=== PATIENT | female | born 1985 | race American Indian/Alaskan Native ===

== ENCOUNTER 2017-08-08 12:39 | Emergency (ER) | payer MEDICAID ==
[2017-08-08 12:40] VITALS: BMI 27.8
--- NOTE | 2017-08-08 13:13 | ED PDOC ---
Arrival/HPI - General Time Seen by Provider: 08/08/17 13:12 Historian: Patient - History of Present Illness Narrative History of Present Illness (Text): 08/08/17 13:13 32 y/o female, pmh including uterine fibroid/ovarian cyst, nkda, c/o wants the sonogram for the breast and the ovarian cysts pain x 1 week. Pt. stated that she is here mainly for the ultrasound of the ovaries as she had been told that she has ovarian cysts on the both side, been having pain on and off from the last month during the period, wants to know if the ovarian cyst has been growing bigger. Pt. has no breast pain but feel the lump on the left side of the breast, no nipple inversion or nipple discharge, no family history of the breast cancer, and she is following up with the pmd Dr. Cuellar which he gave her a prescription for the breast sonogram. Pt .has no nausea or vomiting, no fever or chills, no night sweat, no dizziness, no change in vision, no dizziness , no chest pain or shortness of breath, no other medical or psychological complaints. Past Medical History - Provider Review Nursing Documentation Reviewed: Yes - Infectious Disease Hx of Infectious Diseases: None - Tetanus Immunization Tetanus Immunization: Unknown - Past Medical History Past Medical History: No Previous - Genitourinary/Gynecological Hx Genitourinary Disorders: Yes Other/Comment: Ovarian Cysts - Psychiatric Hx Psychophysiologic Disorder: No Hx Anxiety: No Hx Bipolar Disorder: No Hx Depression: No Hx Emotional Abuse: No Hx Hallucinations: No Hx Panic Disorder: No Hx Post Traumatic Stress Disorder: No Hx Psychosis: No Hx Physical Abuse: No Hx Schizophrenia: No Hx Sexual Abuse: No Hx Substance Use: No - Past Surgical History Past Surgical History: No Previous - Surgical History Hx Eye Surgery: Yes - Anesthesia Hx Anesthesia: Yes Hx Anesthesia Reactions: No Hx Malignant Hyperthermia: No - Suicidal Assessment Feels Threatened In Home Enviroment: No Family/Social History - Physician Review Nursing Documentation Reviewed: Yes Family/Social History: Unknown Family HX Smoking Status: Never Smoked Hx Alcohol Use: No Hx Substance Use: No Hx Substance Use Treatment: Yes Allergies/Home Meds Allergies/Adverse Reactions: Allergies No Known Allergies Allergy (Verified 08/08/17 13:29) Review of Systems - Review of Systems Constitutional: absent: Fatigue, Fevers Eyes: absent: Vision Changes ENT: absent: Hearing Changes Respiratory: absent: SOB, Cough Cardiovascular: absent: Chest Pain Gastrointestinal: absent: Abdominal Pain, Nausea, Vomiting Genitourinary Female: absent: Dysuria, Frequency, Hematuria Skin: absent: Rash, Pruritis, Skin Lesions Neurological: absent: Headache, Dizziness Psychiatric: absent: Anxiety, Depression Physical Exam Vital Signs Reviewed: Yes Vital Signs Temp Pulse Resp BP Pulse Ox 08/08/17 16:20 75 18 116/58 L 99 08/08/17 13:22 99.5 F 89 16 118/51 L 100 Temperature: Afebrile Pulse: Regular Respiratory Rate: Normal Appearance: Positive for: Well-Appearing, Non-Toxic, Comfortable Pain Distress: Mild Mental Status: Positive for: Alert and Oriented X 3 - Systems Exam Head: Present: Atraumatic, Normocephalic Pupils: Present: PERRL Extroacular Muscles: Present: EOMI Conjunctiva: Present: Normal Mouth: Present: Moist Mucous Membranes Neck: Present: Normal Range of Motion Respiratory/Chest: Present: Clear to Auscultation, Good Air Exchange, Other ( breast exam not performed as the patient deferred and refused. ). No: Respiratory Distress, Accessory Muscle Use Cardiovascular: Present: Regular Rate and Rhythm, Normal S1, S2. No: Murmurs Abdomen: Present: Normal Bowel Sounds. No: Tenderness, Distention, Peritoneal Signs, Rebound, Guarding Genitourinary/Pelvic Exam: Present: Other (pelvic examination not performed as the patient refused and deferred. ) Back: Present: Normal Inspection Upper Extremity: Present: Normal Inspection. No: Cyanosis, Edema Lower Extremity: Present: Normal Inspection. No: Edema Neurological: Present: GCS=15, CN II-XII Intact, Speech Normal Skin: Present: Warm, Dry, Normal Color. No: Rashes Psychiatric: Present: Alert, Oriented x 3, Normal Insight, Normal Concentration Medical Decision Making ED Course and Treatment: 08/08/17 13:33 -I explained to the patient that the breast sonogram can be outpatient performed and follow up with the radiology imaging center and follow up with Dr. Cuellar for continuous follow up. -labs/ua -transvaginal sonogram -IVF/toradol 08/08/17 15:56 -Labs are non-significant -UA show +UTI -IV Rocephine ordered. 08/08/17 17:01 -Sonogram show: Multiple pedunculated fibroids. The largest is in the right adnexa its measurements are smaller compared to prior studies. Remarkable appearing endometrium. No endometrial cavity expansion is suggested on this exam. Unremarkable appearing ovaries -Pain resolved improved with the IV toradol. -I spent 10-15 minutes speaking and explaining to the patient and the mother about the labs/radiology results, explained to the patient that she will need to go performed outpatient sonogram with the referral paper and prescription by Dr. Cuellar. -Pt. refused breast and pelvic examination. -Case discussed with Dr. Cameron, he agreed on the diagnosis/treatment/discharge plan. -Discharge home with naproxen, macrobid, stay hydrated, follow up with your own pmd and obgyn within 2 days, return to the ER for any new or worsening signs or symptoms. - Lab Interpretations Lab Results: 08/08/17 15:00 08/08/17 15:00 Lab Results 08/08/17 15:00: Beta HCG, Quant < 2.39 08/08/17 15:00: Sodium 142, Potassium 3.8, Chloride 103, Carbon Dioxide 29, Anion Gap 14, BUN 13, Creatinine 0.7, Est GFR ( Amer) > 60, Est GFR (Non- Af Amer) > 60, Random Glucose 93, Calcium 9.4, Total Bilirubin 0.5, AST 21, ALT 22, Alkaline Phosphatase 49, Total Protein 7.8, Albumin 4.4, Globulin 3.4, Albumin/Globulin Ratio 1.3, Lipase 92 08/08/17 15:00: Urine Color Yellow, Urine Appearance Cloudy, Urine pH 6.0, Ur Specific [place] 1.025, Urine Protein 30 H, Urine Glucose (UA) Negative, Urine Ketones Trace H, Urine Blood Large H, Urine Nitrate Positive H, Urine Bilirubin Negative, Urine Urobilinogen 0.2, Ur Leukocyte Esterase Small H, Urine RBC 10 - 15, Urine WBC 5 - 10, Ur Epithelial Cells 10 - 12, Urine Bacteria Large 08/08/17 15:00: WBC 6.0, RBC 3.93, Hgb 12.4, Hct 36.6, MCV 93.1, MCH 31.6, MCHC 33.9, RDW 12.4, Plt Count 305, MPV 9.8, Gran % 65.2, Lymph % (Auto) 28.6, [place] % (Auto) 5.0, Eos % (Auto) 0.7 L, Baso % (Auto) 0.5, Gran # 3.93, Lymph # 1.7, [place] # 0.3, Eos # 0.0, Baso # 0.03 I have reviewed the lab results: Yes Interpretation: Abnormal lab values (+UTI) - RAD Interpretation Radiology Orders: 08/08/17 14:16 TRANSVAGINAL [US] Stat HISTORY: bilateral ovarian cysts? c/o pain COMPARISON: CT abdomen and pelvis 05/11/2016. Pelvic ultrasound 08/29/2013 TECHNIQUE: Transabdominal and transvaginal FINDINGS: UTERUS: Measures 6.4 x 2.9 x 2.8 cm. Anteverted. In the right adnexa a pedunculated fibroid with central hypo echogenicity measuring 5.3 x 5.0 x 5.1 cm in size is noted. This probably is what simulated a expanded endometrial canal on the CT abdomen and pelvis from 05/11/2016 as the endometrium is separate from it and normal appearing. Within this right adnexal mass presumably a large pedunculated fibroid is a central homogeneous hypo echogenicity. A normal- appearing right ovary is seen separate from this a right adnexal mass. Additional fibroids are noted many of which appear pedunculated is well at least 3 are noted the 1 in the largest is as mentioned above. This large pedunculated right adnexal fibroid appears smaller in size on the current study previously this measured 6.0 x 5.4 x 5.6 cm. Additional pedunculated fibroids are noted 1.8 x 1.4 x 1.9 cm. This is not seen as such on the prior study. A pedunculated fibroid measures 2.4 x 2.2 x 2.1 cm. This appears smaller in size compared to the prior measurement of 3.9 x 2.3 x 2.2 cm. ENDOMETRIUM: Measures 4.3 mm in diameter. Unremarkable. CERVIX: No cervical abnormality identified. RIGHT OVARY: Measures 2.7 x 1.3 x 2.2 cm. No solid mass. Normal flow. LEFT OVARY: Measures 2.4 x 1.0 x 1 point sick cm. No solid mass. Normal flow. FREE FLUID: No significant free fluid noted. OTHER FINDINGS: None. IMPRESSION: Multiple pedunculated fibroids. The largest is in the right adnexa its measurements are smaller compared to prior studies. Remarkable appearing endometrium. No endometrial cavity expansion is suggested on this exam. Unremarkable appearing ovaries [employer]: Radiologist - Medication Orders Current Medication Orders: Discontinued Medications Sodium Chloride (Sodium Chloride 0.9%) 1,000 mls @ 999 mls/hr IV .Q1H1M STA Stop: 08/08/17 15:15 Last Admin: 08/08/17 15:11 Dose: 999 mls/hr eMAR Start Stop Document 08/08/17 15:11 AB (Rec: 08/08/17 15:11 AB [id number]) Intravenous Solution Start Date 08/08/17 Start Time 15:11 End Date 08/08/17 End time 16:11 Total Infusion Time 60 Ceftriaxone Sodium (Rocephin 1 Gram Ivpb) 1 gm in 100 mls @ 200 mls/hr IVPB STAT STA PRN Reason: Protocol Stop: 08/08/17 16:09 Last Admin: 08/08/17 16:32 Dose: 200 mls/hr eMAR Start Stop Document 08/08/17 16:32 AB (Rec: 08/08/17 16:32 AB [id number]) Intravenous Solution Start Date 08/08/17 Start Time 16:32 End Date 08/08/17 End time 17:02 Total Infusion Time 30 Ketorolac Tromethamine (Toradol) 30 mg IVP STAT STA Stop: 08/08/17 14:16 Last Admin: 08/08/17 15:11 Dose: 30 mg MAR Pain Assessment Document 08/08/17 15:11 AB (Rec: 08/08/17 15:12 AB [id number]) Pain Reassessment Is this a pain reassessment? Yes Sleep Is patient sleeping during reassessment? No Presence of Pain Presence of Pain Yes Pain Scale Used Pain Scale Used Numeric Location Upper or Lower Lower Pain Location Body Site Abdomen Back Description Description Constant Pain Behavior Irritability Aggravating Factors ADL's Alleviating Factors/Management Medication Techniques Alleviating Factors Medication IVP Administration Document 08/08/17 15:11 AB (Rec: 08/08/17 15:12 AB [id number]) Charges for Administration # of IVP Administrations 1 - PA / [employer] WORKER / Resident Statement MD/DO has reviewed & agrees with the documentation as recorded. Disposition/Present on Arrival - Present on Arrival Any Indicators Present on Arrival: No History of DVT/PE: No History of Uncontrolled Diabetes: No Urinary Catheter: No History of Decub. Ulcer: No History Surgical Site Infection Following: None - Disposition Have Diagnosis and Disposition been Completed?: Yes Diagnosis: UTI (urinary tract infection), Fibroid Disposition: HOME/ ROUTINE Disposition Time: 17:08 Patient Plan: Discharge Patient Problems: Current Active Problems Problem Status Onset Fibroid Acute UTI (urinary tract infection) Acute Condition: IMPROVED Additional Instructions: -Discharge home with naproxen, macrobid, stay hydrated, follow up with your own pmd and obgyn within 2 days, return to the ER for any new or worsening signs or symptoms. Prescriptions: Naproxen 500 mg PO BID PRN #22 tab PRN Reason: Other Nitrofurantoin Macrocrystals [Macrobid] 100 mg PO BID #14 cap Referrals: Kailyn Cuellar MD [Primary Care Provider] - Follow up with primary Lena Beaulieu MD [Staff Provider] - Follow up with primary Chandu Wetzel MD [Staff Provider] - Follow up with primary Forms: WORK NOTE
[2017-08-08 13:29] VITALS: TEMP 99.5
[2017-08-08] MEDS ORDERED: Sodium Chloride 0.9% 1,000 ML IV STA (14:15)
[2017-08-08 15:17] LABS: BASO # 0.03 K/mm3 (0.0-2.0); BASO % 0.5 % (0.0-3.0); EOS % 0.7 % (1.5-5.0); GRAN # 3.93 (1.4-6.5); GRAN % 65.2 % (50.0-68.0); HEMATOCRIT 36.6 % (36.0-48.0); LYMPH # 1.7 (1.2-3.4); LYMPH % 28.6 % (22.0-35.0); MEAN CELL VOLUME 93.1 fl (80.0-105.0); MEAN CORPUSCULAR HEMOGLOBIN 31.6 pg (25.0-35.0); MEAN CORPUSCULAR HGB CONC 33.9 g/dl (31.0-37.0); MEAN PLATELET VOLUME 9.8 fl (7.0-11.0); MONO # 0.3 (0.1-0.6); RED CELL DISTRIBUTION WIDTH 12.4 % (11.5-14.5)
[2017-08-08 15:21] LABS: URINE BILIRUBIN NEGATIVE (NEGATIVE); URINE BLOOD LARGE (NEGATIVE); URINE GLUCOSE (UA) NEGATIVE (NEGATIVE); URINE KETONE TRACE mg/dL (NEGATIVE); URINE LEUKOCYTE ESTERASE SMALL Leu/uL (NEGATIVE); URINE PROTEIN 30 mg/dL (<30 mg/dL); URINE UROBILINOGEN 0.2 E.U./dL (<1 E.U./dL)
[2017-08-08 15:26] LABS: URINE APPEARANCE CLOUDY (CLEAR); URINE COLOR YELLOW (YELLOW)
[2017-08-08 15:27] LABS: ALB/GLOB RATIO 1.3 (1.1-1.8); ALKALINE PHOSPHATASE 49 U/L (38-126); ALT/SGPT 22 U/L (7-56); AST/SGOT 21 U/L (14-36); BILIRUBIN,TOTAL 0.5 mg/dL (0.2-1.3); BLOOD UREA NITROGEN 13 mg/dL (7-21); CALCIUM 9.4 mg/dL (8.4-10.5); CARBON DIOXIDE 29 mmol/L (21-33); CHLORIDE 103 mmol/L (98-107); GFR AFRICAN-AMERICAN > 60; GLUCOSE,RANDOM 93 mg/dL (70-110); LIPASE 92 U/L (23-300); POTASSIUM 3.8 mmol/L (3.6-5.0); SODIUM 142 mmol/L (132-148); TOTAL PROTEIN 7.8 g/dL (5.8-8.3)
[2017-08-08 15:39] LABS: URINE BACTERIA LARGE (NEG)
[2017-08-08] MEDS ORDERED: cefTRIAXone 1 gm 1 GM/100 ML BAG IVPB STA (15:40)
[2017-08-08 16:21] VITALS: BP 116/58; PULSE 75; RESP 18; O2SAT 99
--- NOTE | 2017-08-08 16:35 | US ---
HISTORY: bilateral ovarian cysts? c/o pain COMPARISON: CT abdomen and pelvis 05/11/2016. Pelvic ultrasound 08/29/2013 TECHNIQUE: Transabdominal and transvaginal FINDINGS: UTERUS: Measures 6.4 x 2.9 x 2.8 cm. Anteverted. In the right adnexa a pedunculated fibroid with central hypo echogenicity measuring 5.3 x 5.0 x 5.1 cm in size is noted. This probably is what simulated a expanded endometrial canal on the CT abdomen and pelvis from 05/11/2016 as the endometrium is separate from it and normal appearing. Within this right adnexal mass presumably a large pedunculated fibroid is a central homogeneous hypo echogenicity. A normal-appearing right ovary is seen separate from this a right adnexal mass. Additional fibroids are noted many of which appear pedunculated is well at least 3 are noted the 1 in the largest is as mentioned above. This large pedunculated right adnexal fibroid appears smaller in size on the current study previously this measured 6.0 x 5.4 x 5.6 cm. Additional pedunculated fibroids are noted 1.8 x 1.4 x 1.9 cm. This is not seen as such on the prior study. A pedunculated fibroid measures 2.4 x 2.2 x 2.1 cm. This appears smaller in size compared to the prior measurement of 3.9 x 2.3 x 2.2 cm. ENDOMETRIUM: Measures 4.3 mm in diameter. Unremarkable. CERVIX: No cervical abnormality identified. RIGHT OVARY: Measures 2.7 x 1.3 x 2.2 cm. No solid mass. Normal flow. LEFT OVARY: Measures 2.4 x 1.0 x 1 point sick cm. No solid mass. Normal flow. FREE FLUID: No significant free fluid noted. OTHER FINDINGS: None. IMPRESSION: Multiple pedunculated fibroids. The largest is in the right adnexa its measurements are smaller compared to prior studies. Remarkable appearing endometrium. No endometrial cavity expansion is suggested on this exam. Unremarkable appearing ovaries
== END 2017-08-08 18:34 | disposition home or self-care (01) ==
LOC: ED 12:39
DX: N39.0 Urinary tract infection, site not specified (principal); D25.9 Leiomyoma of uterus, unspecified
CPT/HCPCS: 76830; 80053; 81001; 83690; 84702; 85025; 87086; 96361; 96365; 96375; 99284; J0696; J1885; J7040